=== PATIENT | male | born 1990 | race Caucasian/White ===

== ENCOUNTER 2017-10-08 14:11 | Emergency (ER) | END 2017-10-08 16:16 | disposition home or self-care (01) ==

== ENCOUNTER 2017-10-10 12:17 | Emergency (ER) | END 2017-10-10 12:51 | disposition home or self-care (01) ==

== ENCOUNTER 2017-10-16 07:02 | Emergency (ER) | END 2017-10-16 07:27 | disposition home or self-care (01) ==